=== PATIENT | female | born 1980 | race Caucasian/White ===

== ENCOUNTER 2018-09-19 17:32 | Emergency (ER) | payer OTHER, BC ==
[~2018-09-19] VITALS: Ht 157.5 cm; Wt 83.9 kg
[~2018-09-19 17:32] MED LIST: CEPH500 PO; CYCL10 PO; HYDACE5 PO; MEDR150I; PROM25 PO; Percocet 5-3251 EACH PO; Valium5 MG PO
[2018-09-19] MEDS ORDERED: IBUP800 PO (17:59)
[2018-09-19] MEDS ORDERED: POTCHL10ER (18:00)
[2018-09-19] MEDS ORDERED: ALBU90OI6 INH (18:00)
[2018-09-19] MEDS ORDERED: FURO20 (18:00)
[2018-09-19] MEDS ORDERED: Cyclobenzaprine5 MG PO (19:30)
== END 2018-09-19 19:41 | disposition home or self-care (01) ==
LOC: ER 17:32
DX: S13.4XXA Sprain of ligaments of cervical spine, initial encounter (principal); V43.52XA Car driver injured in collision with other type car in traffic accident, initial encounter; Z79.899 Other long term (current) drug therapy; Z79.891 Long term (current) use of opiate analgesic; F17.210 Nicotine dependence, cigarettes, uncomplicated
CPT/HCPCS: 72040; 99283-25

== ENCOUNTER 2018-11-12 15:21 | Emergency (ER) | payer OTHER, BC ==
[~2018-11-12] VITALS: Ht 157.5 cm; Wt 86.2 kg
[~2018-11-12 15:21] MED LIST changes: +ALBU90OI6 INH; +Cyclobenzaprine5 MG PO; +FURO20; +IBUP800 PO; +POTCHL10ER
[2018-11-12] MEDS ORDERED: METPRE4DP PO (19:28)
[2018-11-12] MEDS ORDERED: Percocet 5-3251 EACH PO (19:28)
[2018-11-12] MEDS ORDERED: LIDO700A20 TOP (19:40)
== END 2018-11-12 19:41 | disposition home or self-care (01) ==
LOC: ER 15:21
DX: M54.42 Lumbago with sciatica, left side (principal); Z79.899 Other long term (current) drug therapy; F17.210 Nicotine dependence, cigarettes, uncomplicated
CPT/HCPCS: 72100; 96372; 99283-25; J1170; J1885